=== PATIENT | female | born 1995 | race Caucasian/White ===

== ENCOUNTER → 2016-04-15 | Outpatient (CLI) | payer OTHER ==
[2016-04-15 16:30] LABS: CH 26.8; CHCM 31.3; HCT 39.3 % (34.0-46.0); HDW 2.24; HGB 12.3 gm/dL (11.4-16.0); MCH 26.9 pg (25.0-35.0); MCHC 31.2 g/dL (31.0-37.0); MCV 86.1 fL (80.0-100.0); Mean Platelet Volume 7.3; RBC 4.56 m/uL (3.80-5.40); RDW 12.9 % (11.5-15.5)
[2016-04-15 16:43] LABS: Glucose 77 mg/dL (74-99); Non-African American GFR(MDRD) >60 (>60 ml/min/1.73 sqM)
[2016-04-15 17:14] LABS: Hepatitis B Surface Ag Index 0.07
--- NOTE | 2016-04-15 18:00 | US ---
EXAMINATION TYPE: US OB <= 14 wk fetus DATE OF EXAM: 04/15/2016 4:12 PM COMPARISON: NONE CLINICAL HISTORY: 20-year-old female Large for dates [id number]. Date of LMP: 02/12/2016 Beta HcG (if available): not available EXAM PERFORMED: Transabdominal scanning TECHNIQUE: EXAM MEASUREMENTS: GESTATIONAL AGE / DATING Physician Established: (9 weeks/0 days) EDC: 11/18/2016 Dates by LMP: (9 weeks/0 days) EDC: 11/18/2016 Dates by First Scan: OPTIMIZATION ENGINEER Dates by Current Scan for: (8 weeks/6 days) EDC: 11/19/2016 MATERNAL ANATOMY Uterus: 12.0 x 8.7 x 8.1cm. Possible 4 cm left myometrial fibroid. Right Ovary: 2.8 x 1.6 x 1.1cm Left Ovary: 3.3 x 2.9 x 2.7cm Post CDS / Adnexa: Within normal limits Presence of free fluid: no Presence of corpus luteal cyst: not seen Presence of subchorionic bleed: no GESTATION / SURVEY CRL: 2.2cm (8 weeks/6 days) MSD: Within normal limits Yolk Sac (normal less than 6mm): 4.7 mm Heart Rate: 171 bpm Rhythm: Normal IUP: Viable IUP IMPRESSION: 1. Single live intrauterine with estimated gestational age of 9 weeks 0 days by LMP. Curren t ultrasound biometry is concordant (8 weeks 6 days). 2. Possible 4 cm left myometrial fibroid. This is seen on the provided images. The professional nursing assistant did no t comment on this finding. 3. Complete survey recommended at 18-20 weeks.
[2016-04-17 08:08] LABS: HIV-1/HIV-2 Ab Screen NONREAC (NON REAC)
== END | disposition home or self-care (01) ==
LOC: RADUSWWP 15:59
PROVIDERS: ATTEND Obstetrics & Gynecology
DX: O36.61X0 Maternal care for excessive fetal growth, first trimester, not applicable or unspecified (principal); O26.811 Pregnancy related exhaustion and fatigue, first trimester; Z3A.09 9 weeks gestation of pregnancy
CPT/HCPCS: 36415; 76801; 82565; 82947; 85027; 86762; 86780; 86850; 86900; 86901; 87340; 87389

== ENCOUNTER 2016-07-22 18:51 | Emergency (ER) | payer OTHER ==
[2016-07-22 19:11] VITALS: BP 111/59; PULSE 83; RESP 18; TEMP 98.2
--- NOTE | 2016-07-22 20:34 | ED ---
General Adult HPI - General Chief complaint: Fever Stated complaint: fever,chills Time Seen by Provider: 07/22/16 20:27 Source: patient, RN notes reviewed Mode of arrival: ambulatory Limitations: no limitations - History of Present Illness Initial comments: 20-year-old female presents emergency Department with chief complaint of congestion cough fever. Patient states she didn't feel well the last day or so. Patient took some Tylenol today. Patient states her cough is dry nonproductive she does have some postnasal drainage. Mild sore throat. Denies any ear pain. Patient states she is or having no compilations her . - Related Data Home Medications Medication Instructions Recorded Confirmed Vit 40/Iron/Folic/Dha 1 cap PO DAILY 07/22/16 07/22/16 [ Multivitamin-Dha Sfgl] Allergies Allergy/AdvReac Type Severity Reaction Status Date / Time No Known Allergies Allergy Verified 07/22/16 19:38 Review of Systems ROS Statement: Those systems with pertinent positive or pertinent negative responses have been documented in the HPI. ROS Other: All systems not noted in ROS Statement are negative. Past Medical History Past Medical History: No Reported History History of Any Multi-Drug Resistant Organisms: None Reported Past Surgical History: Adenoidectomy, Tonsillectomy Past Psychological History: No Psychological Hx Reported Smoking Status: Never smoker Past Alcohol Use History: None Reported Past Drug Use History: Marijuana - Past Family History Mother Family Medical History: No Reported History General Exam Limitations: no limitations General appearance: alert, in no apparent distress Eye exam: Present: normal appearance, PERRL, EOMI. Absent: scleral icterus, conjunctival injection, periorbital swelling ENT exam: Present: mucous membranes moist, TM's normal bilaterally, normal external ear exam. Absent: normal exam, normal oropharynx (Postnasal drainage) Neck exam: Present: normal inspection. Absent: tenderness, meningismus, lymphadenopathy Respiratory exam: Present: normal lung sounds bilaterally. Absent: respiratory distress, wheezes, rales, rhonchi, stridor Cardiovascular Exam: Present: regular rate, normal rhythm, normal heart sounds. Absent: systolic murmur, diastolic murmur, rubs, gallop, clicks Skin exam: Present: warm, dry, intact, normal color. Absent: rash Course Vital Signs 07/22/16 19:08 Temperature 98.2 F Pulse Rate 83 Respiratory 18 Rate Blood Pressure 111/59 O2 Sat by Pulse 97 Oximetry Medical Decision Making - Medical Decision Making 20-year-old female presented for cough congestion possible fever. Patient's strep, influenza negative. Patient symptoms have just started. Patient's exam is benign. This most likely is a viral upper restrained infection. She will continue Tylenol for any fever increase her fluids and follow-up with primary care physician. - Lab Data Lab Results 07/22/16 Range/Units 19:57 Influenza Type A RNA Not Detected (Not Detectd) Influenza Type B (PCR) Not Detected (Not Detectd) Group A Strep Rapid Negative (Negative) Disposition Clinical Impression: Viral upper respiratory infection Disposition: HOME SELF-CARE Condition: Stable Instructions: Upper Respiratory Infection (ED) Additional Instructions: Please return to the Emergency Department if symptoms worsen or any other concerns. Referrals: None,Stated [Primary Care Provider] - 1-2 days Time of Disposition: 20:34
== END 2016-07-22 20:44 | disposition home or self-care (01) ==
LOC: EC 18:51
DX: J06.9 Acute upper respiratory infection, unspecified (principal); Z79.899 Other long term (current) drug therapy; Z90.89 Acquired absence of other organs
CPT/HCPCS: 87081; 87430; 87502; 99283

== ENCOUNTER → 2016-08-21 | Outpatient (CLI) | payer OTHER ==
[2016-08-21 15:25] LABS: CH 27.5; CHCM 32.5; HCT 35.7 % (34.0-46.0); HDW 2.54; HGB 11.7 gm/dL (11.4-16.0); MCH 27.9 pg (25.0-35.0); MCHC 32.7 g/dL (31.0-37.0); MCV 85.3 fL (80.0-100.0); Mean Platelet Volume 7.5; RBC 4.19 m/uL (3.80-5.40); RDW 14.1 % (11.5-15.5); WBC 7.4 k/uL (3.8-10.6)
== END | disposition home or self-care (01) ==
LOC: LABWHC1 14:08
PROVIDERS: ATTEND Obstetrics & Gynecology
DX: Z34.82 Encounter for supervision of other normal pregnancy, second trimester (principal); Z3A.00 Weeks of gestation of pregnancy not specified
CPT/HCPCS: 36415; 82950; 85027

== ENCOUNTER 2016-11-10 14:38 | Outpatient (CLI) | payer OTHER ==
[2016-11-10 15:01] VITALS: PULSE 87; RESP 17; TEMP 97.7
[2016-11-10 15:30] VITALS: BP 117/66
--- NOTE | 2016-11-10 20:13 | P.MSEPDOC ---
Presenting Problems - Arrival Data Date of Arrival on Unit: 11/10/16 Time of Arrival on Unit: 14:38 Mode of Transport: Ambulatory - Complaint OB-Reason for Admission/Chief Complaint: Vaginal Bleeding Comment: pt reports having intercourse last night and started spotting this am, spotting is now brown in color, denies contrations, reports + fm, pt scheduled for induction 11-12 Medical History - Information : 2 Para: 1 Term: 1 : 0 Abortions: Spontaneous or Elective: 0 Number of Living Children: 1 - Gestational Age Gestational Age by JEREMY (wks/days): 38 Weeks and 6 Days - History Comment: grade III placenta Review of Systems - Review of Systems Constitutional: No problems Breast: No problems ENT: No problems Cardiovascular: No problems Respiratory: No problems Gastrointestinal: No problems Genitourinary: No problems Musculoskeletal: No problems Neurological: No problems Skin: No problems Vital Signs - Temperature Temperature: 97.7 F Temperature Source: Oral - Pulse Right Brachial Pulse Rate: 87 Pulse Assessment Method: Automatic Cuff - Respirations Respiratory Rate: 17 Oxygen Delivery Method: Room Air O2 Sat by Pulse Oximetry: 97 - Blood Pressure Right Arm Blood Pressure: 117/66 Blood Pressure Mean: 83 Blood Pressure Source: Automatic Cuff Medical Screen Scoring (Pre) - Cervical Exam Dilation: 1-3 cm = 1 Membranes: Intact - Uterine Contractions Frequency: > 5 minutes apart = 1 Duration: > 40 seconds = 2 Intensity: N/A - Maternal Vital Signs Maternal Temperature: N/A Maternal Blood Pressure: N/A Signs of Preeclampsia: N/A Maternal Respirations: N/A - Maternal Trauma Maternal Trauma: N/A - Assessment Baseline FHR: 120 Heart Rate - NICHD Category: Category I (Normal) = 0 NST: Reactive Position: N/A Station: N/A - Total Score Total Score (Pre): 4 - Level of Risk Level of Risk: Low (0-5) Physician Notification (Pre) - Physician Notified Physician Notified Date: 11/10/16 Physician Notified Time: 15:10 Physician/Practitioner Notifed:: Dr Bowen Spoke With: Dr Bowen New Order Received: Yes (dc home) Disposition - Disposition OB Disposition: Discharge to home, Written follow up instructions reviewed Discharge Date: 11/10/16 Discharge Time: 15:20 I agree with the RN Medical Screening Exam: Yes Risk & Benefit of care provided described in d/c instruction: Yes Diagnosis: SPOTTING COMPLICATING , THIRD TRIMESTER
== END 2016-11-10 15:20 | disposition home or self-care (01) ==
LOC: FBPOP 14:38
PROVIDERS: ATTEND Obstetrics & Gynecology
DX: O26.853 Spotting complicating pregnancy, third trimester (principal); Z3A.38 38 weeks gestation of pregnancy
CPT/HCPCS: 59025; G0463; 99213

== ENCOUNTER 2016-11-12 06:00 | Inpatient (IN) | payer OTHER ==
[2016-11-12] MEDS ORDERED: CARBOPROST TROMETHAMINE 250 MCG/ML 1 ML AMP IM PRN (06:51)
[2016-11-12] MEDS ORDERED: LIDOCAINE 1% (PF) 10 MG/ML (30 ML SDV) SQ PRN (06:51)
[2016-11-12] MEDS ORDERED: METHYLERGONOVINE 0.2 MG/ML 1 ML AMP IM PRN (06:51)
[2016-11-12] MEDS ORDERED: TERBUTALINE 1 MG/ML VIAL SQ PRN (06:51)
[2016-11-12] MEDS ORDERED: OXYTOCIN 10 UNIT/ML 1 ML VIAL IM PRN (06:51)
[2016-11-12 06:59] VITALS: BMI 26.4
[2016-11-12] MEDS: LACTATED RINGERS 1,000 ML IV SCH ×2 (06:59→12:54)
[2016-11-12 07:08] LABS: Basophils % (A) 0 %; CH 27.7; CHCM 32.1; Eosinophils # (A) 0.4 k/uL (0-0.7); Eosinophils % (A) 5 %; HCT 37.5 % (34.0-46.0); HDW 2.91; Hypochromasia Slight; Luc # (Auto) 0.24; Luc % (Auto) 3; Lymphocytes # (A) 1.9 k/uL (1.0-4.8); Lymphocytes % (A) 26 %; MCH 27.8 pg (25.0-35.0); MCHC 31.9 g/dL (31.0-37.0); Mean Platelet Volume 7.8; Monocytes # (A) 0.4 k/uL (0-1.0); Monocytes % (A) 6 %; Neutrophils # (A) 4.6 k/uL (1.3-7.7); Neutrophils % (A) 61 %; RBC 4.31 m/uL (3.80-5.40); RDW 14.3 % (11.5-15.5); WBC 7.6 k/uL (3.8-10.6)
[2016-11-12] MEDS: OXYTOCIN 20 UNITS/1000 ML NS 1,000 ML IV SCH ×2 (07:26→23:08)
--- NOTE | 2016-11-12 08:22 | P.HPOB ---
History of Present Illness H&P Date: 11/12/16 Chief Complaint: Intrauterine at 39 weeks': Induction of labor Patient is a 21-year-old at 39 weeks gestation with a grade 3 placenta. Other than the placental abnormality she's had no significant problems with the and has been followed closed with twice weekly NSTs since diagnosis of grade 3 placenta. Her pertinent labs and a positive blood type Rh antibody was negative. Rubella was immune hepatitis B surface antigen and RPR as well as groupie strep were negative. On physical exam vital signs are stable and afebrile. Heart regular, lungs clear, extremities without pain. Osteopathic exams unremarkable. Gravid uterus is noted.. Heart tones 130s reactive. She was dilated to 2 cm 50% effaced -3 station artificial rupture membranes was performed and clear fluid is apparent. Assessment intrauterine at term. Plan Pitocin augmentation of labor. At this time she is not anticipate using anything for pain but that may change throughout the day. Past Medical History Past Medical History: No Reported History History of Any Multi-Drug Resistant Organisms: None Reported Past Surgical History: Adenoidectomy, Tonsillectomy Past Anesthesia/Blood Transfusion Reactions: No Reported Reaction Past Psychological History: No Psychological Hx Reported Smoking Status: Former smoker Past Alcohol Use History: None Reported Past Drug Use History: Marijuana - Past Family History Mother Family Medical History: No Reported History Medications and Allergies Home Medications Medication Instructions Recorded Confirmed Type No Known Home Medications [No 11/12/16 11/12/16 History Known Home Medications] Allergies Allergy/AdvReac Type Severity Reaction Status Date / Time No Known Allergies Allergy Verified 11/12/16 06:50 Exam Osteopathic Statement: *. No significant issues noted on an osteopathic structural exam other than those noted in the History and Physical/Consult. - Vital Signs Vital signs: Vital Signs Temp Pulse Resp BP Pulse Ox 11/12/16 06:53 97.3 F L 87 19 105/63 99 Intake and Output 11/11/16 11/12/16 11/12/16 22:59 06:59 14:59 Other: Weight 72.121 kg Results Result Diagrams: 11/12/16 06:50
[2016-11-12] MEDS ORDERED: BUTORPHANOL 1 MG/ML 1 ML VIAL IV PRN (09:00)
[2016-11-12] MEDS ORDERED: ZOLPIDEM 5 MG TAB PO PRN (22:55)
[2016-11-12] MEDS ORDERED: HYDROCORTISONE 2.5% RECTAL CREAM 30 GM TUBE RECTAL PRN (22:55)
[2016-11-12] MEDS ORDERED: diphenhydrAMINE 25 MG CAP PO PRN (22:55)
[2016-11-12] MEDS ORDERED: diphenhydrAMINE 50 MG CAP PO PRN (22:55)
[2016-11-12] MEDS ORDERED: BENZOCAINE/MENTHOL SPRAY 1 GM/SPRAY AEROSOL TOPICAL PRN (22:55)
[2016-11-12] MEDS ORDERED: SIMETHICONE 80 MG CHEWABLE PO PRN (22:55)
[2016-11-12] MEDS ORDERED: LANOLIN CREAM 5 GM TUBE TOPICAL PRN (22:55)
[2016-11-12] MEDS ORDERED: diphenhydrAMINE 50 MG/ML 1 ML VIAL IVP PRN ×2 (22:55)
[2016-11-12] MEDS ORDERED: WITCH HAZEL 1 EACH MED..PAD TOPICAL PRN (22:55)
[2016-11-12] MEDS ORDERED: Acetaminophen-Codeine 300-30mg TAB PO PRN ×2 (22:55)
[2016-11-12] MEDS ORDERED: ACETAMINOPHEN TAB 325 MG TAB PO PRN (22:55)
[2016-11-12] MEDS ORDERED: MEASLES-MUMPS-RUBELLA VACC/PF 12,500 UNIT/0.5 ML VIAL SQ ONE (22:55)
--- NOTE | 2016-11-12 23:04 | P.PROBDLV ---
Vaginal Delivery Note - . Vaginal Delivery Note: Patient progressed to complete and pushing with spontaneous vaginal delivery of a viable male over a first degree perineal laceration. During the delivery the patient struggled to maintain control and pushed herself several feet up the bed away from me as the baby's head came out. A nuchal cord 1 was noted I physically had to lift her bring her down towards me due to the fact that I simply could not get the baby to deliver with her so high in the bed and with her closing her legs onto the baby's head. Once we were able to get her toward me we were able to position her in close to Verito position. With her not pushing and unable to focus the anterior shoulder was not delivering easily and with heart tones in the 70s I made the decision to go deliver the postior shoulder. I was able to grasp the posterior arm and a width a counterclockwise rotation was able to deliver the posterior shoulder and anterior shoulders without any further difficulty. baby was delivered through the nuchal cord as it was too tight to reduce. baby was delivered from left occiput anterior position. Once baby was out mouth and nares were bulb suctioned and spontaneous cry was immediately noted. Baby was then placed on mother's abdomen where the umbilical cord was clamped cut usual fashion an nursery personnel was present to assume care. Placenta was then delivered intact. Her IV however had fallen out during the delivery process due to her thrashing and brisk massage of the fundus was required to maintain bleeding control until a new IV could be started. IV was restarted and Pitocin was then run to the IV and uterus seemed to respond well initially. However after 2-3 min there was again an episode of more bleeding with the uterus reduced in its tonicity. therefore, we did give 1 dose of 0.2 mg Methergine IM. This seemed to resolve the bleeding for the patient at that time. We will have pads weighed for accurate blood loss count. First-degree perineal laceration was then repaired in running fashion with 3- 0 Vicryl. Once this was accomplished both mother and baby were noted to be stable. scores were 8 and 9 at one and 5 minutes respectively and the weight was 8 lbs. 4 oz.
[2016-11-12] MEDS: IBUPROFEN 600 MG TAB PO PRN (23:10)
[2016-11-13] MEDS: SENNOSIDES-DOCUSATE SODIUM 1 EACH TAB PO SCH ×2 (02:44→10:07)
[2016-11-13] MEDS: LACTATED RINGERS 1,000 ML IV SCH (02:45)
[2016-11-13 08:38] LABS: Basophils % (A) 0 %; CH 28.4; CHCM 33.1; Eosinophils # (A) 0.1 k/uL (0-0.7); Eosinophils % (A) 0 %; HCT 28.4 % (34.0-46.0); HDW 3.02; Luc # (Auto) 0.12; Luc % (Auto) 1; Lymphocytes # (A) 1.6 k/uL (1.0-4.8); Lymphocytes % (A) 9 %; MCH 27.6 pg (25.0-35.0); MCHC 31.9 g/dL (31.0-37.0); MCV 86.5 fL (80.0-100.0); Mean Platelet Volume 9.1; Monocytes # (A) 0.6 k/uL (0-1.0); Monocytes % (A) 4 %; Neutrophils # (A) 15.7 k/uL (1.3-7.7); Neutrophils % (A) 87 %; RBC 3.28 m/uL (3.80-5.40); RDW 15.1 % (11.5-15.5); WBC 18.1 k/uL (3.8-10.6); WBC (Perox) 18.98
[2016-11-13 08:40] LABS: HGB 9.1 gm/dL (11.4-16.0)
--- NOTE | 2016-11-13 09:44 | P.PNOBGVD ---
Subjective - Subjective Principal diagnosis: day 1: hemorrhage Interval history: Patient is doing very well this morning. Her vital signs are stable and afebrile. She is ambulating, voiding and she is tolerating her diet. At this time all questions are answered for her. Lochia is currently reported to be light. Patient reports: Reports appetite normal, Reports voiding normally, Reports pain well controlled, Reports ambulating normally : doing well Objective - Latest Vital Signs Latest vital signs: Vital Signs Temp Pulse Resp BP Pulse Ox 11/13/16 04:00 98.0 F 82 17 111/68 96 11/13/16 00:45 97.9 F 77 18 103/62 11/13/16 00:15 98.0 F 83 18 106/67 11/12/16 23:45 98.3 F 96 18 112/71 11/12/16 23:30 98.3 F 76 18 111/68 11/12/16 23:00 88 18 136/55 11/12/16 22:45 94 16 144/80 Intake and Output 11/12/16 11/13/16 11/13/16 22:59 06:59 14:59 Intake Total 1647.1 Output Total 3950 Balance -2302.9 Intake: IV 1300 Oxytocin 20 Units/1000 ml 1300 Ns 1,000 ml @ 1 MILLIUNIT/MIN 3 mls/hr IV .Q24H JAYCOB Rx#:[id number] Intake, IV Titration 347.1 Amount Lactated Ringers 1,000 ml 300 @ 125 mls/hr IV .Q8H JAYCOB Rx#:[id number] Oxytocin 20 Units/1000 ml 47.1 Ns 1,000 ml @ 1 MILLIUNIT/MIN 3 mls/hr IV .Q24H JAYCOB Rx#:[id number] Output: Urine 150 Estimated Blood Loss 3800 Other: # Voids 1 - Exam Lungs: bilateral: normal Chest: Normal S1, Normal S2 Extremities: Present: normal Abdomen: Present: normal appearance, soft Uterus: Present: normal, firm - Labs Labs: Abnormal Lab Results - Last 24 Hours (Table) 11/13/16 Range/Units 08:18 WBC 18.1 H (3.8-10.6) k/uL RBC 3.28 L (3.80-5.40) m/uL Hgb 9.1 L D (11.4-16.0) gm/dL Hct 28.4 L (34.0-46.0) % Neutrophils # 15.7 H (1.3-7.7) k/uL
[2016-11-13] MEDS: IBUPROFEN 600 MG TAB PO PRN (14:53)
[2016-11-14 00:42] VITALS: BP 115/72
[2016-11-14] MEDS: SENNOSIDES-DOCUSATE SODIUM 1 EACH TAB PO SCH ×2 (02:50→10:16)
--- NOTE | 2016-11-14 09:08 | P.DS ---
Providers Date of admission: 11/12/16 06:36 Expected date of discharge: 11/14/16 Attending physician: Carlos Van Primary care physician: Stated None Hospital Course: Patient is doing very well day 2. She is involuting, voiding, and she is tolerating her diet she voices no complaints and shows no signs or symptoms of symptomatic anemia. We'll plan discharged home today and she will follow up with me in 6 weeks it was recommended to her to continue taking vitamins and start an iron supplement at home just for the next few weeks as her body is recovering. On physical exam her vital signs again are stable her heart is regular, lungs are clear and her abdomen is soft with a firm uterus below the umbilicus. Lochia is reported be light. She voices no complaints of extremity pain. Assessment day 2. Plan discharged home follow up with me in 6 weeks. Discharge instructions were thoroughly reviewed and all questions are answered for her prior to her discharge. Patient Condition at Discharge: Good Plan - Discharge Summary New Discharge Prescriptions: No Action No Known Home Medications [No Known Home Medications] Discharge Medication List No Known Home Medications [No Known Home Medications] 11/12/16 [History] Follow up Appointment(s)/Referral(s): Carlos Van DO [Doctor of Osteopathic Medicine] - 6 Weeks Activity/Diet/Wound Care/Special Instructions: Heavy lifting, limit stairs and driving and pelvic rest. If any high temperatures, heavy bleeding, or severe pain call my office Discharge Disposition: HOME SELF-CARE
[2016-11-14 10:05] VITALS: PULSE 85; RESP 20; TEMP 98
== END 2016-11-14 13:00 | disposition home or self-care (01) | DRG 774 ==
LOC: 4FBP 06:36
PROVIDERS: ADMIT Obstetrics & Gynecology; ATTEND Obstetrics & Gynecology
PROC: 10E0XZZ Delivery of Products of Conception, External Approach (ICD-10-PCS; principal; 2016-11-12)
PROC: 0HQ9XZZ Repair Perineum Skin, External Approach (ICD-10-PCS; 2016-11-12)
DX: O69.1XX0 Labor and delivery complicated by cord around neck, with compression, not applicable or unspecified (principal); O72.1 Other immediate postpartum hemorrhage; Z37.0 Single live birth; O70.0 First degree perineal laceration during delivery; Z3A.39 39 weeks gestation of pregnancy; Z87.891 Personal history of nicotine dependence
CPT/HCPCS: 85025; 88307

== ENCOUNTER 2017-06-30 16:47 | Emergency (ER) | payer OTHER ==
[2017-06-30] MEDS ORDERED: SODIUM CHLORIDE 0.9% 1,000 ML IV ONE (17:34)
[2017-06-30] MEDS ORDERED: ACETAMINOPHEN TAB 500 MG TAB PO STA (17:34)
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
[2017-06-30 18:06] LABS: Basophils % (A) 0 %; Eosinophils % (A) 0 %; HCT 38.4 % (34.0-46.0); HGB 12.3 gm/dL (11.4-16.0); Lymphocytes # (A) 1.4 k/uL (1.0-4.8); Lymphocytes % (A) 10 %; MCH 25.3 pg (25.0-35.0); MCHC 32.1 g/dL (31.0-37.0); Mean Platelet Volume 7.6; Monocytes # (A) 0.4 k/uL (0-1.0); Monocytes % (A) 3 %; Neutrophils # (A) 11.4 k/uL (1.3-7.7); Neutrophils % (A) 86 %; Platelet Count 274 k/uL (150-450); RBC 4.86 m/uL (3.80-5.40); RDW 15.1 % (11.5-15.5); WBC 13.3 k/uL (3.8-10.6)
[2017-06-30 18:12] LABS: ALT 24 U/L (9-52); AST 16 U/L (14-36); Alkaline Phosphatase 61 U/L (38-126); Anion Gap 11 mmol/L; Blood Urea Nitrogen 8 mg/dL (7-17); Calcium 9.2 mg/dL (8.4-10.2); Carbon Dioxide 23 mmol/L (22-30); Chloride 105 mmol/L (98-107); Glucose 90 mg/dL (74-99); Lipase 105 U/L (23-300); Magnesium 1.6 mg/dL (1.6-2.3); Sodium 139 mmol/L (137-145); Total Bilirubin 0.5 mg/dL (0.2-1.3); Total Protein 6.6 g/dL (6.3-8.2)
[2017-06-30 18:27] LABS: Appearance,Urine Clear (Clear); Bilirubin,Urine Negative (Negative); Blood,Urine Negative (Negative); Color,Urine Yellow; Glucose,Urine (UA) Negative (Negative); Ketones,Urine Trace (Negative); Leukocyte Esterase,Urine Negative (Negative); Nitrite,Urine Negative (Negative); PH, Urine 5.5 (5.0-8.0); Protein,Urine Trace (Negative); Specific Gravity,Urine 1.025 (1.001-1.035); Urobilinogen,Urine <2.0 mg/dL (<2.0)
--- NOTE | 2017-06-30 19:17 | XR ---
EXAMINATION TYPE: XR chest 2V DATE OF EXAM: 06/30/2017 COMPARISON: NONE HISTORY: Chest pain. Right extremity numbness. TECHNIQUE: Frontal and lateral views of the chest are obtained. FINDINGS: There is no focal air space opacity, pleural effusion, or pneumothorax seen. The cardiac silhouette size is within normal limits. The osseous structures are intact. IMPRESSION: No acute cardiopulmonary process.
[2017-06-30 19:34] VITALS: TEMP 98.7
[2017-06-30 19:52] VITALS: PULSE 79; RESP 18
[2017-06-30 20:11] VITALS: BP 104/59
== END 2017-06-30 20:10 | disposition home or self-care (01) ==
LOC: EC 16:47
DX: L55.9 Sunburn, unspecified (principal); R50.9 Fever, unspecified; E86.0 Dehydration; Z87.891 Personal history of nicotine dependence
CPT/HCPCS: 36415; 71046; 80053; 81003; 83690; 83735; 84703; 85025; 87081; 87430; 87502; 96360; 99284

== ENCOUNTER → 2020-03-07 | Outpatient (CLI) | payer OTHER ==
--- NOTE | 2020-03-07 11:31 | US ---
EXAMINATION TYPE: Transabdominal DATE OF EXAM: 03/07/2020 10:54 AM COMPARISON: NONE CLINICAL HISTORY: Z36. Confirm dates. EXAM PERFORMED: Transabdominal (TA) EXAM MEASUREMENTS: GESTATIONAL AGE / DATING Physician Established: (9 weeks/3 days) EDC: 10/07/2020 Dates by LMP: (9 weeks/3 days) EDC: 10/07/2020 Dates by First Scan: No previous this is first scan Dates by Current Scan for: (9 weeks/3 days) EDC: 10/07/2020 MATERNAL ANATOMY Uterus: 9.0 x 6.7 x 7.7 cm Right Ovary: 2.6 x 2.2 x 1.6 cm Left Ovary: 2.1 x 1.8 x 0.8 cm Post CDS / Adnexa: wnl Presence of free fluid: No Presence of corpus luteal cyst: No Presence of subchorionic bleed: No GESTATION / SURVEY CRL: 2.6 cm (9 weeks/3 days) Yolk Sac (normal less than 6mm): 4 mm Heart Rate: 167 bpm Rhythm: Normal IUP: Viable IUP Date of LMP: 01/01/2020 Beta HcG (if available): Not available at this time Viable IUP, measurements consistent with dates IMPRESSION: Single intrauterine gestation estimated at 9 weeks 3 days gestation based on the crown-rump length. C ardiac activity measures 167 bpm.
[2020-03-07 11:44] LABS: HCT 38.3 % (34.0-46.0); HGB 12.5 gm/dL (11.4-16.0); MCH 27.6 pg (25.0-35.0); MCHC 32.7 g/dL (31.0-37.0); MCV 84.5 fL (80.0-100.0); Mean Platelet Volume 7.3; Platelet Count 204 k/uL (150-450); RBC 4.54 m/uL (3.80-5.40); RDW 13.4 % (11.5-15.5); WBC 6.8 k/uL (3.8-10.6)
[2020-03-07 11:51] LABS: African American GFR (CKD) >90 (>60 ml/min/1.73 sqM); Anion Gap 6 mmol/L; Calcium 9.2 mg/dL (8.4-10.2); Carbon Dioxide 27 mmol/L (22-30); Chloride 106 mmol/L (98-107); Glucose 73 mg/dL (74-99); Magnesium 1.9 mg/dL (1.6-2.3); Non-African American GFR(CKD) >90 (>60 ml/min/1.73 sqM); Phosphorus 4.2 mg/dL (2.5-4.5); Potassium 3.8 mmol/L (3.5-5.1); Sodium 139 mmol/L (137-145)
[2020-03-07 12:07] LABS: T4, Free (Free Thyroxine) 0.91 ng/dL (0.78-2.19)
[2020-03-08 04:11] LABS: T3, Uptake 25 % (23-37)
[2020-03-08 05:06] LABS: Hepatitis B Surface Antigen Non-Reactive (Non-Reactive)
[2020-03-08 06:28] LABS: Toxoplasma Antibody (IgG) <3.0 IU/mL (<7.2); Toxoplasma Antibody (IgM) <3.0 AU/mL (<8.0)
[2020-03-08 17:40] LABS: HIV 2 AB Non-Reactive (Non-Reactive); HIV AB P24 Non-Reactive (Non-Reactive); HIV P24 AG Non-Reactive (Non-Reactive)
== END | disposition home or self-care (01) ==
LOC: RADUSWWP 10:40
PROVIDERS: ATTEND Obstetrics & Gynecology
DX: Z34.81 Encounter for supervision of other normal pregnancy, first trimester (principal); Z3A.09 9 weeks gestation of pregnancy
CPT/HCPCS: 76801; 80051; 82310; 82565; 82947; 83735; 84100; 84439; 84443; 84479; 85027; 86762; 86777; 86778; 86780; 86850; 86900; 86901; 87340; 87390

== ENCOUNTER 2020-08-03 22:50 | Outpatient (CLI) | payer OTHER ==
[2020-08-03 23:57] LABS: Appearance,Urine Turbid (Clear); Bacteria,Urine Occasional /hpf; Bilirubin,Urine Negative (Negative); Blood,Urine Negative (Negative); Color,Urine Yellow; Glucose,Urine (UA) Negative (Negative); Ketones,Urine Negative (Negative); Leukocyte Esterase,Urine Large (Negative); Mucus,Urine Few /hpf; Nitrite,Urine Positive (Negative); Protein,Urine 1+ (Negative); RBC,Urine 9 /hpf (0-5); Specific Gravity,Urine 1.019 (1.001-1.035); Squamous Epithelial Cell,Urine 42 /hpf (0-4); Urobilinogen,Urine <2.0 mg/dL (<2.0); WBC,Urine >182 /hpf (0-5)
[2020-08-04 00:34] VITALS: BP 112/57; PULSE 107; RESP 16; TEMP 97.9
--- NOTE | 2020-08-04 07:23 | P.MSEPDOC ---
Presenting Problems - Arrival Data Date of Arrival on Unit: 08/03/20 Time of Arrival on Unit: 22:50 Mode of Transport: Ambulatory - Complaint OB-Reason for Admission/Chief Complaint: Pain Comment: lower abdominal pain and pressure since 5pm 07/26 Medical History - Information : 3 Para: 2 Term: 2 : 0 Abortions: Spontaneous or Elective: 0 Number of Living Children: 2 - Gestational Age Gestational Age by JEREMY (wks/days): 30 Weeks and 6 Days Review of Systems - Review of Systems Constitutional: No problems Breast: No problems ENT: No problems Cardiovascular: No problems Respiratory: No problems Gastrointestinal: No problems Genitourinary: No problems Musculoskeletal: No problems Neurological: No problems Skin: No problems Vital Signs - Temperature Temperature: 97.9 F Temperature Source: Temporal Artery Scan - Pulse Right Sitting Brachial Pulse Rate: 107 Pulse Assessment Method: Automatic Cuff - Respirations Respiratory Rate: 16 Oxygen Delivery Method: Room Air O2 Sat by Pulse Oximetry: 97 - Blood Pressure Right Arm Sitting Blood Pressure: 112/57 Blood Pressure Mean: 75 Blood Pressure Source: Automatic Cuff Medical Screen Scoring - Cervical Exam Dilation (cm): 0 Effacement (%): 0 Station: -3 Membranes: Intact - Assessment - Baby A Baseline FHR: 135 Heart Rate - NICHD Category: Category I (Normal) NST: Reactive Physician Notification - Physician Notified Physician Notified Date: 08/04/20 Physician Notified Time: 00:06 Physician: dr sharif New Order Received: Yes - Notification Comment Comment: culture urine, pt to increase water intake, prescription will be sent to pt' pharmacy for her to nut picker in AM Maternal Triage Index - Maternal Triage Index Presenting for scheduled procedure w/no complaint: No - Stat/Priority 1 Stat Priority 1: No - Urgent/Priority 2 Urgent Priority 2: No - Prompt/Priority 3 Prompt Priority 3: No - Non-Urgent/Priority 4 Non-Urgent Priority 4: Yes Criteria Met for Priority 4: abdominal pain Disposition - Disposition OB Disposition: Discharge to home Discharge Date: 08/04/20 Discharge Time: 00:15 I agree with the RN Medical Screening Exam: Yes Case reviewed; plan agreed upon as documented in EMR&OBIX.: Yes Diagnosis: URINARY TRACT INFECTION, SITE NOT SPECIFIED
== END 2020-08-04 00:15 | disposition home or self-care (01) ==
LOC: FBPOP 22:50
PROVIDERS: ATTEND Obstetrics & Gynecology
DX: O23.43 Unspecified infection of urinary tract in pregnancy, third trimester (principal); Z3A.30 30 weeks gestation of pregnancy; Z87.891 Personal history of nicotine dependence
CPT/HCPCS: 59025; 81001; 87086; G0463; 99213

== ENCOUNTER 2020-09-20 16:33 | Outpatient (CLI) | payer OTHER ==
[2020-09-20 17:34] VITALS: BP 109/63; PULSE 98; RESP 16; TEMP 97.8
--- NOTE | 2020-09-20 20:32 | P.MSEPDOC ---
Presenting Problems - Arrival Data Date of Arrival on Unit: 09/20/20 Time of Arrival on Unit: 16:33 Mode of Transport: Ambulatory - Complaint OB-Reason for Admission/Chief Complaint: Acute Nausea/Vomiting, Pain Comment: occasional cramping, rates 4 on scale of 0-10 Medical History - Information : 3 Para: 2 Term: 2 : 0 Abortions: Spontaneous or Elective: 0 Number of Living Children: 2 - Gestational Age Gestational Age by JEREMY (wks/days): 37 Weeks and 4 Days - History Complications: Hx. Substance Abuse Comment: THC use Review of Systems - Review of Systems Constitutional: No problems Breast: No problems ENT: No problems Cardiovascular: No problems Respiratory: No problems Gastrointestinal: No problems Genitourinary: No problems Musculoskeletal: No problems Neurological: No problems Skin: No problems Vital Signs - Temperature Temperature: 97.8 F Temperature Source: Temporal Artery Scan - Pulse Right Sitting Pulse Rate: 98 Pulse Assessment Method: Auscultation - Respirations Respiratory Rate: 16 Oxygen Delivery Method: Room Air - Blood Pressure Right Arm Blood Pressure: 109/63 Blood Pressure Mean: 78 Blood Pressure Source: Automatic Cuff Medical Screen Scoring - Cervical Exam Dilation (cm): 3 Effacement (%): 60 Station: -2 Membranes: Intact - Assessment - Baby A Baseline FHR: 135 Heart Rate - NICHD Category: Category I (Normal) NST: Reactive Physician Notification - Physician Notified Physician Notified Date: 09/20/20 Physician Notified Time: 16:58 Physician: Jessie Bowen Order Received: Yes (d/c home) Maternal Triage Index - Non-Urgent/Priority 4 Non-Urgent Priority 4: Yes Criteria Met for Priority 4: reactive nst, no contractions on monitor or felt by pt, vag exam 3cm, same as previous exam in office Disposition - Disposition OB Disposition: Discharge to home Discharge Date: 09/20/20 Discharge Time: 17:28 I agree with the RN Medical Screening Exam: Yes Case reviewed; plan agreed upon as documented in EMR&OBIX.: Yes Diagnosis: NAUSEA WITH VOMITING, UNSPECIFIED
== END 2020-09-20 17:28 | disposition home or self-care (01) ==
LOC: FBPOP 16:33
PROVIDERS: ATTEND Obstetrics & Gynecology
DX: O21.2 Late vomiting of pregnancy (principal); O99.323 Drug use complicating pregnancy, third trimester; F12.10 Cannabis abuse, uncomplicated; Z3A.37 37 weeks gestation of pregnancy
CPT/HCPCS: 59025; G0463; 99213

== ENCOUNTER 2020-10-01 06:15 | Inpatient (IN) | payer OTHER ==
[2020-09-27 15:56] VITALS: BMI 24.5
[2020-10-01] MEDS ORDERED: TERBUTALINE 1 MG/ML VIAL SQ PRN (06:41)
[2020-10-01] MEDS ORDERED: OXYTOCIN 10 UNIT/ML 1 ML VIAL IM PRN (06:41)
[2020-10-01] MEDS ORDERED: LIDOCAINE 0.5% (PF) 5 MG/ML (50 ML SDV) SQ PRN (06:41)
[2020-10-01] MEDS ORDERED: METHYLERGONOVINE 0.2 MG/ML 1 ML AMP IM PRN (06:41)
[2020-10-01] MEDS ORDERED: CARBOPROST TROMETHAMINE 250 MCG/ML 1 ML AMP IM PRN (06:41)
[2020-10-01] MEDS ORDERED: AMPICILLIN 2,000 MG in SODIUM CHLORIDE 0.9% 100 ML IVPB STA ×2 (06:44→07:50)
[2020-10-01] MEDS ORDERED: OXYTOCIN 30 UNITS/500 ML NS 30 UNIT in SALINE 1 500ML.BAG IV SCH (06:45)
[2020-10-01] MEDS: LACTATED RINGERS 1,000 ML IV SCH ×2 (07:03→11:14)
[2020-10-01 07:26] LABS: Basophils % (A) 0 %; Eosinophils # (A) 0.2 k/uL (0-0.7); Eosinophils % (A) 2 %; HCT 35.2 % (34.0-46.0); HGB 11.7 gm/dL (11.4-16.0); Lymphocytes # (A) 2.1 k/uL (1.0-4.8); Lymphocytes % (A) 21 %; MCH 28.2 pg (25.0-35.0); MCHC 33.2 g/dL (31.0-37.0); MCV 85.1 fL (80.0-100.0); Mean Platelet Volume 8.1; Monocytes # (A) 0.5 k/uL (0-1.0); Monocytes % (A) 5 %; Neutrophils # (A) 7.3 k/uL (1.3-7.7); Neutrophils % (A) 70 %; Platelet Count 248 k/uL (150-450); RBC 4.13 m/uL (3.80-5.40); RDW 14.9 % (11.5-15.5); WBC 10.4 k/uL (3.8-10.6)
[2020-10-01] MEDS ORDERED: fentaNYL (PF) 50 MCG/ML 5 ML AMP ONE (10:43)
[2020-10-01] MEDS ORDERED: ROPIVACAINE 5MG/ML 20ML VIAL ONE (10:43)
[2020-10-01] MEDS ORDERED: SODIUM CHLORIDE 0.9% 100 ML BAG ONE (10:43)
[2020-10-01] MEDS ORDERED: AMPICILLIN 1,000 MG in SODIUM CHLORIDE 0.9% 50 ML IVPB SCH (12:00)
--- NOTE | 2020-10-01 16:40 | P.PROBDLV ---
Vaginal Delivery Note - . Vaginal Delivery Note: Patient progressed complete and pushed with spontaneous vaginal delivery of a viable male over an intact perineum. Lung deliver the head anterior posterior shoulders were easily delivered with gentle downward upper traction from right occiput anterior position. Once baby was fully delivered mouth nares were bulb suctioned and baby was placed on mother's abdomen where the umbilical cord was allowed to pulsate for 30 seconds prior to clamping and cutting. [facility] personnel was present and assumed care. Placenta was then delivered intact and Pitocin was added to the IV. scores were 9 and 9 at one and 5 minutes respectively and the weight was 7 lbs. 7 oz. Both mother and baby are currently stable following delivery.
--- NOTE | 2020-10-01 16:40 | P.HPOB ---
History of Present Illness H&P Date: 10/01/20 Chief Complaint: Intrauterine at term: Induction of labor Patient is a 25-year-old 3 para 2 at 39 weeks gestation arise for induction of labor. Her course has been relatively unremarkable and she is feeling well at this time. She is dated by an early ultrasound. Pertinent labs A+ blood type, Rh and it was negative, rubella is nonimmune, hepatitis B surface antigen and RPR were both negative group B strep was positive. She is aware of risks with induction. A category 1 tracing/and reactive nonstress tests are noted. She is on Pitocin and artificial rupture membranes was performed and clear fluid is noted. She is not plan to use anyth ing for analgesia and epidural and IV pain medicine are both cauterized. . Past Medical History Past Medical History: No Reported History History of Any Multi-Drug Resistant Organisms: None Reported Past Surgical History: Adenoidectomy Past Anesthesia/Blood Transfusion Reactions: No Reported Reaction Past Psychological History: Anxiety, Depression Smoking Status: Current every day smoker Past Alcohol Use History: None Reported Additional Past Alcohol Use History / Comment(s): Pt reports smoking 1/2-1 ppd Past Drug Use History: Marijuana Additional Drug Use History / Comment(s): Pt reports daily marijuana use - Past Family History Mother Family Medical History: No Reported History Father Family Medical History: Hypertension Medications and Allergies Home Medications Medication Instructions Recorded Confirmed Type Pnv,Calcium 72/Iron/Folic Acid 1 tab PO DAILY 08/03/20 10/01/20 History [ Plus Tablet] Allergies Allergy/AdvReac Type Severity Reaction Status Date / Time No Known Allergies Allergy Verified 10/01/20 06:40 Exam Osteopathic Statement: *. No significant issues noted on an osteopathic structural exam other than those noted in the History and Physical/Consult. Vital Signs Temp Pulse Resp BP 10/01/20 15:54 97.9 F 74 16 105/59 10/01/20 15:53 97.9 F 74 16 105/59 10/01/20 15:23 98.2 F 73 16 103/62 10/01/20 14:53 80 16 114/69 10/01/20 14:38 76 16 100/63 10/01/20 14:22 71 16 96/55 10/01/20 14:06 97.5 F L 78 16 125/68 10/01/20 13:53 81 16 114/69 10/01/20 06:40 96.8 F L 78 16 104/62 Intake and Output 10/01/20 10/01/20 10/01/20 06:59 14:59 22:59 Other: Weight 68.039 kg - OBG Physical Exam Breast: both: normal (no masses) Abdomen: bowel sounds normal, no diffuse tenderness, no bruit present, no guarding noted, no hepatomegaly, no splenomegaly, no mass Vulva: both: normal Vagina: normal moisture, no discharge Cervix: no lesion, no discharge Uterus: normal size, normal contour Adnexa: both: normal Anus/Rectum: normal perianal skin, no rectal mass, no hemorrhoids, heme negative Results Result Diagrams: 10/01/20 07:04
[2020-10-01] MEDS ORDERED: HYDROCORTISONE 2.5% RECTAL CREAM 30 GM TUBE RECTAL PRN (18:33)
[2020-10-01] MEDS ORDERED: ACETAMINOPHEN TAB 325 MG TAB PO PRN (18:33)
[2020-10-01] MEDS ORDERED: diphenhydrAMINE 25 MG CAP PO PRN (18:33)
[2020-10-01] MEDS ORDERED: ZOLPIDEM 5 MG TAB PO PRN (18:33)
[2020-10-01] MEDS ORDERED: MEASLES-MUMPS-RUBELLA VACC/PF 12,500 UNIT/0.5 ML VIAL SQ ONE (18:33)
[2020-10-01] MEDS ORDERED: LANOLIN CREAM 5 GM TUBE TOPICAL PRN (18:33)
[2020-10-01] MEDS ORDERED: diphenhydrAMINE 50 MG CAP PO PRN (18:33)
[2020-10-01] MEDS ORDERED: SIMETHICONE 80 MG CHEWABLE PO PRN (18:33)
[2020-10-01] MEDS ORDERED: diphenhydrAMINE 50 MG/ML 1 ML VIAL IVP PRN ×2 (18:33)
[2020-10-01] MEDS ORDERED: BENZOCAINE/MENTHOL SPRAY 1 GM/SPRAY AEROSOL TOPICAL PRN (18:33)
[2020-10-01] MEDS ORDERED: IBUPROFEN 600 MG TAB PO SCH (18:45)
[2020-10-01] MEDS: SENNOSIDES-DOCUSATE SODIUM 1 EACH TAB PO SCH (20:00)
--- NOTE | 2020-10-02 07:29 | P.DS ---
Providers Date of admission: 10/01/20 06:20 Expected date of discharge: 10/02/20 Attending physician: Carlos Van Primary care physician: Stated None Hospital Course: Maria Isabel is doing very well this morning. She is ambulating, voiding and tolerating her diet. She voices no complaints. Vital signs are stable and afebrile. Heart regular, lungs clear, extremities are without pain. Abdomen is soft and uterus is firm. Lochia is reported light. Assessment post day 1. Plan discharged home follow up with me in 6 weeks. For Motrin provided. Patient Condition at Discharge: Good Plan - Discharge Summary New Discharge Prescriptions: New Ibuprofen [Motrin] 600 mg PO Q6HR PRN #30 tab PRN Reason: Pain No Action Pnv,Calcium 72/Iron/Folic Acid [ Plus Tablet] 1 tab PO DAILY Discharge Medication List Pnv,Calcium 72/Iron/Folic Acid [ Plus Tablet] 1 tab PO DAILY 08/03/20 [History] Ibuprofen [Motrin] 600 mg PO Q6HR PRN #30 tab 10/02/20 [Rx] Follow up Appointment(s)/Referral(s): Carlos Van DO [Doctor of Osteopathic Medicine] - 11/12/20 3:00 pm Activity/Diet/Wound Care/Special Instructions: No heavy lifting, limit stairs and driving, and pelvic rest. If any high temperatures, heavy bleeding, or severe pain call my office Discharge Disposition: HOME SELF-CARE
[2020-10-02] MEDS: SENNOSIDES-DOCUSATE SODIUM 1 EACH TAB PO SCH (07:39)
[2020-10-02 08:03] LABS: Basophils % (A) 0 %; Eosinophils # (A) 0.2 k/uL (0-0.7); Eosinophils % (A) 1 %; HCT 37.7 % (34.0-46.0); HGB 12.2 gm/dL (11.4-16.0); Hypochromasia Slight; Lymphocytes # (A) 2.2 k/uL (1.0-4.8); Lymphocytes % (A) 19 %; MCH 28.4 pg (25.0-35.0); MCHC 32.4 g/dL (31.0-37.0); MCV 87.8 fL (80.0-100.0); Mean Platelet Volume 8.1; Monocytes # (A) 0.7 k/uL (0-1.0); Monocytes % (A) 6 %; Neutrophils # (A) 8.5 k/uL (1.3-7.7); Neutrophils % (A) 72 %; Platelet Count 217 k/uL (150-450); RDW 14.5 % (11.5-15.5); WBC 11.8 k/uL (3.8-10.6)
[2020-10-02 12:54] VITALS: BP 97/56; PULSE 74; RESP 16; TEMP 97.8
== END 2020-10-02 15:00 | disposition home or self-care (01) | DRG 807 ==
LOC: 4FBP 06:20
PROVIDERS: ADMIT Obstetrics & Gynecology; ATTEND Obstetrics & Gynecology
PROC: 10E0XZZ Delivery of Products of Conception, External Approach (ICD-10-PCS; principal; 2020-10-01)
DX: O99.824 Streptococcus B carrier state complicating childbirth (principal); Z37.0 Single live birth; Z3A.39 39 weeks gestation of pregnancy; O99.334 Smoking (tobacco) complicating childbirth; Z82.49 Family history of ischemic heart disease and other diseases of the circulatory system; F17.200 Nicotine dependence, unspecified, uncomplicated
CPT/HCPCS: 85025; 86850; 86900; 86901

== ENCOUNTER → 2020-11-21 | Outpatient (CLI) | payer OTHER ==
[2020-11-21 23:39] LABS: Basophils # (A) 0.05 X 10*3/uL (0.00-0.10); Basophils % (A) 0.8 %; Eosinophils # (A) 0.51 X 10*3/uL (0.04-0.35); Eosinophils % (A) 8.2 %; HCT 41.5 % (37.2-46.3); HGB 12.8 g/dL (12.0-15.0); Lymphocytes # (A) 1.95 X 10*3/uL (0.90-5.00); Lymphocytes % (A) 31.4 %; MCH 25.9 pg (27.0-32.0); MCHC 30.8 g/dL (32.0-37.0); Mean Platelet Volume 11.4 fL (9.5-12.2); Monocytes # (A) 0.43 X 10*3/uL (0.20-1.00); Monocytes % (A) 6.9 %; Neutrophils # (A) 3.27 X 10*3/uL (1.80-7.70); Neutrophils % (A) 52.5 %; Platelet Count 258 X 10*3/uL (140-440); RBC 4.94 X 10*6/uL (4.10-5.20); RDW 14.3 % (11.5-14.5); WBC 6.22 X 10*3/uL (4.50-10.00)
== END | disposition home or self-care (01) ==
LOC: LABWHC1 14:49
PROVIDERS: ATTEND Obstetrics & Gynecology
DX: Z01.812 Encounter for preprocedural laboratory examination (principal)
CPT/HCPCS: 36415; 85025

== ENCOUNTER 2020-11-29 08:53 | Day surgery (SDC) | payer OTHER ==
[2020-11-27 14:24] VITALS: BMI 20.7
[~2020-11-29 08:53] MED LIST: DEXAMETHASONE SOD PHOSPHATE 4 MG/ML 1 ML VIAL IV ONE; LIDOCAINE 1% (10MG/ML) FOR IV START INTRADERMA ONE; ONDANSETRON 4 MG/2 ML VIAL IVP ONE; Pre Op ABX Message 1 EACH MISC MISCELLANE ONE
[2020-11-29] MEDS: LACTATED RINGERS 1,000 ML IV SCH ×2 (09:41→12:32)
--- NOTE | 2020-11-29 11:59 | HP ---
HISTORY AND PHYSICAL PRINCIPAL DIAGNOSIS: Family planning. HISTORY OF PRESENT ILLNESS: This 25-year-old female has completed her family planning and desires permanent sterilization. She is scheduled for a laparoscopic tubal occlusion with Filshie clips. Risks/benefits/alternatives to this procedure were reviewed with the patient in detail and did include but were not limited to bleeding and infection, damage to the bladder or bowel, vascular injuries, nerve injuries, ureteral injuries. She understands this is a permanent procedure and not designed to be reversed and carries a small failure rate somewhere in the neighborhood of 4 per 1000. PHYSICAL EXAMINATION: Heart is regular. Lungs are clear. Extremities are without pain. Abdomen is soft. Positive bowel sounds are noted. Pelvic exam is otherwise unremarkable. ASSESSMENT: Family planning. PLAN: Laparoscopic tubal occlusion with Filshie clips. MMODL / IJN: [id number] /
[2020-11-29] MEDS ORDERED: MIDAZOLAM 2 MG/2 ML VIAL ONE (12:22)
[2020-11-29] MEDS ORDERED: NEOSTIGMINE 1 MG/ML 10 ML VIAL ONE (12:22)
[2020-11-29] MEDS ORDERED: GLYCOPYRROLATE 0.2 MG/ML 2 ML VIAL ONE (12:22)
[2020-11-29] MEDS ORDERED: LIDOCAINE 1% INJ 10MG/ML (20 ML MDV) ONE (12:22)
[2020-11-29] MEDS ORDERED: ROCURONIUM 10 MG/ML (5 ML VIAL) IV ONE (12:22)
[2020-11-29] MEDS ORDERED: SUCCINYLCHOLINE CHLORIDE 100 MG/5 ML SYR IV ONE (12:22)
[2020-11-29] MEDS ORDERED: fentaNYL (PF) 50 MCG/ML 2 ML AMP ONE (12:22)
[2020-11-29] MEDS ORDERED: KETOROLAC 15 MG/ML 1 ML VIAL ONE (12:22)
[2020-11-29] MEDS ORDERED: PROPOFOL 10 MG/ML 20 ML VIAL IV ONE (12:22)
[2020-11-29] MEDS ORDERED: BUPIVACAINE (PF) 0.5% 30 ML VIAL SQ ONE (12:57)
--- NOTE | 2020-11-29 13:07 | P.OP ---
Date of Procedure: 11/29/20 Preoperative Diagnosis: Family planning Postoperative Diagnosis: Same Procedure(s) Performed: Laparoscopic tubal occlusion with Filshie clips Anesthesia: SUBHA Surgeon: Carlos Van Estimated Blood Loss (ml): 5 IV fluids (ml): 400 Urine output (ml): 30 Pathology: none sent (30) Condition: stable Disposition: same day Operative Findings: Normal female pelvic anatomy Description of Procedure: Patient was taken to the operating suite where general anesthetic was found be adequate. She was prepped and draped in normal sterile fashion and placed in the dorsal lithotomy position. Initially a speculum was inserted in the vagina and into lip cervix identified grasped without. Uterus was then sounded to 9 cm and a uterine manipulator was inserted without difficulty. These other incidents were then removed and red rubber catheter was used to drain the bladder of urine. Once this was completed closer changed and attention was turned to the abdominal portion procedure were 2 mL of quarter percent Marcaine was injected periumbilically. Through this injected anesthetic a 5 mm skin incision was made and through this incision, under direct visualization with an optical trocar and sleeve, the camera was inserted. Once peritoneal placed was assured gas was allowed to fully insufflate the abdomen and patient was then placed in steep Trendelenburg position. Observations pelvis were noted. First the right fallopian tube than the left fallopian tube had a Filshie clip applied approximately 2-3 cm from uterine cornu. This occlusion noted and no bleeding from the mesosalpinx, incidents removed and gas allowed to expel from the abdomen. 5 deep breaths were provided during this process. 4-0 Vicryl was then used to close incision subcuticularly. Another 3-4 mL of cord blood Marcaine was injected around these incisions then incidents removed from vagina. Sponge, lap, needle counts were all correct 2. Patient was then taken to the recovery room in stable and satisfactory condition. Plan - Discharge Summary Discharge Rx Participant: Yes New Discharge Prescriptions: New Ibuprofen [Motrin] 600 mg PO Q6HR PRN #30 tab PRN Reason: Pain HYDROcodone/APAP 5-325MG [[place] 5-325] 1 tab PO Q4HR PRN #30 tab PRN Reason: Pain No Action Zoloft(Unknown Dose) 1 tab PO DAILY Discharge Medication List Zoloft(Unknown Dose) 1 tab PO DAILY 11/27/20 [History] HYDROcodone/APAP 5-325MG [[place] 5-325] 1 tab PO Q4HR PRN #30 tab 11/29/20 [Rx] Ibuprofen [Motrin] 600 mg PO Q6HR PRN #30 tab 11/29/20 [Rx] Follow up Appointment(s)/Referral(s): Carlos Van DO [Doctor of Osteopathic Medicine] - 2 Weeks Activity/Diet/Wound Care/Special Instructions: Lifting: Limit stairs and driving, and pelvic rest. If any high temperatures, heavy bleeding, or severe pain call my office Discharge Disposition: HOME SELF-CARE
[2020-11-29 13:19] VITALS: TEMP 97.7
[2020-11-29] MEDS: HYDROmorphone 0.5 MG/0.5 ML SYRINGE IVP PRN ×2 (13:49→13:59)
[2020-11-29] MEDS ORDERED: LACTATED RINGERS 1,000 ML IV ONE ×2 (13:52)
[2020-11-29] MEDS ORDERED: HYDROcodone/APAP 5-325MG 1 EACH TAB ONE (14:31)
[2020-11-29] MEDS ORDERED: HYDROcodone/APAP 5-325MG 1 EACH TAB PO ONE (14:31)
[2020-11-29 14:51] VITALS: BP 143/80; PULSE 57; RESP 18
== END 2020-11-29 15:09 | disposition home or self-care (01) ==
LOC: OR 08:53
PROVIDERS: ATTEND Obstetrics & Gynecology
DX: Z30.2 Encounter for sterilization (principal); F17.200 Nicotine dependence, unspecified, uncomplicated; F41.9 Anxiety disorder, unspecified; F32.9 Major depressive disorder, single episode, unspecified; F12.90 Cannabis use, unspecified, uncomplicated
CPT/HCPCS: 58671; 81025; J2250; J1100; J2710; J2405; J2001; J3010; J1885; J0330; J2704; J1170

== ENCOUNTER 2023-01-06 12:07 | Day surgery (SDC) | payer OTHER ==
[2023-01-01 12:13] VITALS: BMI 18.5
[~2023-01-06 12:07] MED LIST changes: -DEXAMETHASONE SOD PHOSPHATE 4 MG/ML 1 ML VIAL IV ONE; -LIDOCAINE 1% (10MG/ML) FOR IV START INTRADERMA ONE; -ONDANSETRON 4 MG/2 ML VIAL IVP ONE; -Pre Op ABX Message 1 EACH MISC MISCELLANE ONE; +SODIUM CHLORIDE 0.9% 1,000 ML IV SCH
[2023-01-06] MEDS ORDERED: SODIUM CHLORIDE 0.9% 500 ML 500 ML IV ONE (12:40)
[2023-01-06 13:14] LABS: Basophils % (A) 0 %; Eosinophils # (A) 0.2 k/uL (0-0.7); Eosinophils % (A) 4 %; HCT 40.3 % (34.0-46.0); HGB 13.3 gm/dL (11.4-16.0); Lymphocytes # (A) 1.8 k/uL (1.0-4.8); Lymphocytes % (A) 43 %; MCH 27.8 pg (25.0-35.0); Mean Platelet Volume 8.8; Monocytes # (A) 0.3 k/uL (0-1.0); Monocytes % (A) 7 %; Neutrophils # (A) 1.9 k/uL (1.3-7.7); Neutrophils % (A) 43 %; Platelet Count 181 k/uL (150-450); RDW 13.7 % (11.5-15.5); WBC 4.3 k/uL (3.8-10.6)
[2023-01-06 13:18] VITALS: BP 180/137; PULSE 57; RESP 16; TEMP 98.5
[2023-01-06 13:40] LABS: ALT 12 U/L (4-34); AST 22 U/L (14-36); African American GFR (CKD) >90 (>60 ml/min/1.73 sqM); Albumin 4.2 g/dL (3.5-5.0); Alkaline Phosphatase 47 U/L (38-126); Anion Gap 8 mmol/L; Blood Urea Nitrogen 12 mg/dL (7-17); Carbon Dioxide 23 mmol/L (22-30); Chloride 106 mmol/L (98-107); Glucose 84 mg/dL (74-99); Non-African American GFR(CKD) >90 (>60 ml/min/1.73 sqM); Potassium 4.4 mmol/L (3.5-5.1); Sodium 137 mmol/L (137-145); Total Bilirubin 0.8 mg/dL (0.2-1.3); Total Protein 6.9 g/dL (6.3-8.2)
--- NOTE | 2023-01-06 19:34 | P.EPPROC ---
- EP Procedure Note Electrophysiology Procedure Note: Diagnosis Recurrent syncope Twelve-lead EKG shows sinus rhythm short MD interval without delta waves Normal ST segments normal QT interval Tilt table test per protocol Baseline blood pressure 98/59 mmHg and heart rate 52 beats a minute She was tilted upright at night of 70 per protocol No significant change in heart rate and blood pressure She felt lightheaded through the procedure but her Blood pressure rate were both normal Impression Normal twelve-lead EKG Normal heart rate and blood pressure response to upright tilting
== END 2023-01-06 14:49 | disposition home or self-care (01) ==
LOC: CATHEP 12:07
PROVIDERS: ATTEND Internal Medicine Clinical Cardiac Electrophysiology
DX: R55 Syncope and collapse (principal); F17.210 Nicotine dependence, cigarettes, uncomplicated; Z79.899 Other long term (current) drug therapy
CPT/HCPCS: 80053; 81025; 82533; 84443; 85025; 93660